=== PATIENT | male | born 1980 | race Caucasian/White ===

== ENCOUNTER 2020-08-07 17:17 | Emergency (ER) | payer BC, OTHER ==
[2020-08-07] MEDS ORDERED: Sodium Chloride 0.9% 10 ML Syringe FLUSH PRN (17:42)
[2020-08-07] MEDS ORDERED: Sodium Chloride 0.9% 2.5 ML Syringe FLUSH PRN (17:42)
[2020-08-07] MEDS ORDERED: Iopamidol 755 MG/ML 500 ML Multipack Bottle IVPUSH ONE (17:52)
--- NOTE | 2020-08-07 18:01 | CT ---
INDICATION: Stroke code. Pt w/lt sided tingling in face, lt sided arm weakness today. CT SCAN HEAD WITHOUT CONTRAST TECHNIQUE: Direct axial non-contrast images of the head from foramen magnum to vertex are provided. FINDINGS: Axial images of the brain demonstrate a normal appearance of the ventricles, sulci and basal cistern. There is no evidence of intracranial hemorrhage, infarct, mass or mass effect. Mera-white differentiation is normal throughout. Visualized mastoid air cells and middle ear cavities are clear. The visualized paranasal sinuses are clear. The orbits are symmetric. Intact calvarium. CONCLUSION: Unremarkable unenhanced head CT. Please note that all CT scans at this facility use dose modulation, iterative reconstruction, and/or weight-based dosing when appropriate to reduce radiation dose to as low as reasonably achievable. Dictated by: Bill Garza MD @ 08/07/2020 17:59:19 (Electronically Signed)
[2020-08-07 18:05] LABS: BLOOD UREA NITROGEN,BUN 14 mg/dL (7.0-18.0); CARBON DIOXIDE,CO2 25.4 mmol/L (21.0-32.0); CHLORIDE,CL 102 mmol/L (98-107); GLUCOSE RANDOM 97 mg/dL (74-106); POTASSIUM,K 3.8 mmol/L (3.5-5.1); SODIUM,NA 139 mmol/L (136-148)
--- NOTE | 2020-08-07 18:15 | CT ---
INDICATION: Acute stroke, left arm weakness. TECHNIQUE: High resolution axial CT images acquired through the head and neck following rapid intravenous administration of iodinated contrast. Multiplanar MIPS of cranial and cervical vasculature performed. FINDINGS: CTA head: There is normal filling of the intracranial vasculature; i.e. there is no large vessel occlusion or intracranial stenosis. There is no cerebral aneurysm or evidence for vascular malformation. The brain parenchyma is at CTA. CTA neck: The internal carotid arteries are somewhat tortuous and redundant. However, there is no carotid or vertebral artery stenosis or dissection. The soft tissues of the neck are within normal limits. The cervical spine is in normal alignment. The lung apices are clear. IMPRESSION: Unremarkable CTA head and neck. Jose Reagan MD Neurointerventional Radiologist [facility] Please note that all CT scans at this facility use dose modulation, iterative reconstruction, and/or weight-based dosing when appropriate to reduce radiation dose to as low as reasonably achievable. Dictated by Jose Reagan MD @ Aug 08 2020 5:44AM Signed by Dr. Jose Reagan @ Aug 08 2020 5:44AM
--- NOTE | 2020-08-07 18:26 | CT ---
INDICATION: Acute stroke, left arm weakness. TECHNIQUE: High resolution axial CT images acquired through the head and neck following rapid intravenous administration of iodinated contrast. Multiplanar MIPS of cranial and cervical vasculature performed. FINDINGS: CTA head: There is normal filling of the intracranial vasculature; i.e. there is no large vessel occlusion or intracranial stenosis. There is no cerebral aneurysm or evidence for vascular malformation. The brain parenchyma is at CTA. CTA neck: The internal carotid arteries are somewhat tortuous and redundant. However, there is no carotid or vertebral artery stenosis or dissection. The soft tissues of the neck are within normal limits. The cervical spine is in normal alignment. The lung apices are clear. IMPRESSION: Unremarkable CTA head and neck. Jose Reagan MD Neurointerventional Radiologist [facility] Please note that all CT scans at this facility use dose modulation, iterative reconstruction, and/or weight-based dosing when appropriate to reduce radiation dose to as low as reasonably achievable. Dictated by Jose Reagan MD @ Aug 08 2020 5:39AM Signed by Dr. Jose Reagan @ Aug 08 2020 5:44AM
--- NOTE | 2020-08-07 18:32 | CR ---
INDICATION: Left arm pain TECHNIQUE: Chest 1 views COMPARISON: 07/07/2009 FINDINGS: Cardiovascular and mediastinum: Heart size and vasculature are normal in caliber and appearance. Lungs and pleural spaces: Lungs are clear. No sign of infiltrate or mass. No sign of pleural effusion. No pneumothorax. Bones and soft tissues: No significant findings. IMPRESSION: No acute findings and no significant changes from the prior exam. Dictated by Jaime Khanna MD @ Aug 07 2020 6:29PM Signed by Dr. Jaime Khanna @ Aug 07 2020 6:30PM
--- NOTE | 2020-08-07 18:38 | EDM.PDOC ---
<Yair Workman - Last Filed: 08/07/20 18:42> ED HPI GENERAL MEDICAL PROBLEM - General Chief Complaint: Neuro Symptoms/Deficits Stated Complaint: NECK DISCOMFORT, LT SIDE OF FACE NUMB, LT ARM PAIN Time Seen by Provider: 08/07/20 17:21 - History of Present Illness INITIAL COMMENTS - FREE TEXT/NARRATIVE: 40-year-old male presents with left arm discomfort in the left lower face tingling. Patient was concerned about the possibility of a stroke because his mother recently had a stroke. He had trouble with high blood pressure in the past but is not currently on any medications. He is a non-smoker. Couple hours prior to arrival patient noted tingling around his left mouth. This was associated with left arm discomfort. He denies chest pain he reports some mild shortness of breath. No nausea vomiting lightheadedness dizziness no other abnormal sensations numbness or weakness. No difficulty walking. Symptoms constant without exacerbating or alleviating factors radiation or other associated symptoms. denies pain Pain Score (Numeric/FACES): 0 - Related Data Allergies Allergy/AdvReac Type Severity Reaction Status Date / Time No Known Allergies Allergy Verified 08/07/20 18:24 Home Meds: Home Meds . [No Known Home Meds] 08/07/20 [History] Past Medical History - Past Health History Medical/Surgical History: Denies Medical/Surgical History Psychiatric History: Reports: Anxiety Hematologic History: Reports: None - Infectious Disease History Infectious Disease History: Reports: None Social & Family History - Family History Family Medical History: No Pertinent Family History - Tobacco Use Tobacco Use Status *Q: Never Tobacco User - Caffeine Use Caffeine Use: Reports: Coffee, Energy Drinks, Soda - Recreational Drug Use Recreational Drug Use: No ED ROS GENERAL - Review of Systems Review Of Systems: See Below Free Text/Narrative/Comment: General: No fever. Skin: No rash. Eyes: No vision problems. ENT: No sore throat. Neck: No neck stiffness. Respiratory: No shortness of breath. Cardiac: No chest pain. Gastrointestinal: No nausea, vomiting or abdominal pain. Urinary: No dysuria. Musculoskeletal: No myalgias/arthralgias. Neurologic: Per HPI ED EXAM, GENERAL - Physical Exam Exam: See Below Free Text/Narrative:: General Appearance: No acute distress, appears comfortable Skin: No rash HEENT: Normocephalic/atraumatic, sclera anicteric, mucous membranes moist Neck: Normal range of motion Chest and Lungs: Bilateral breath sounds, clear to auscultation Cardiovascular: Regular rate and rhythm, no murmur Abdomen: Soft, non-tender Back: Normal Musculoskeletal: No edema or tenderness Neurologic: Awake and alert, cranial nerves III through XI intact bilaterally 5 out of 5 strength in the bilateral upper and lower extremities sensation grossly intact in the upper and lower extremities Romberg negative gait normal, normal speech Psychiatric: Appropriate, cooperative #1 Interpretation EKG Date: 08/07/20 Time: 18:41 EKG Interpretation Comments: Normal sinus rhythm rate of 73 2 PVCs with isolated bigeminy but otherwise normal sinus rhythm no acute ischemia otherwise unremarkable QTC 421 Departure - Departure Disposition: Home, Self-Care 01 Condition: Good Clinical Impression: Paresthesia, Hypertension - Discharge Information *PRESCRIPTION DRUG MONITORING PROGRAM REVIEWED*: Not Applicable *COPY OF PRESCRIPTION DRUG MONITORING REPORT IN PATIENT LUCITA: Not Applicable Instructions: Paresthesia, Hypertension, Adult, [id number] Referrals: Scott Garza MD [Primary Care Provider] - Forms: ED Department Discharge Additional Instructions: The CT scans of your head and neck today were normal they showed no narrowing or blockages of any arteries. Your lab work today was normal with the exception of a mild elevation in your hemoglobin which was 17.8. Important you follow-up with your primary care doctor for follow-up visit and let them know about this value they can repeat it and do additional testing if needed. Your blood pressure was elevated here as well. However, it is common for blood pressure to be elevated in the ER. And for this reason you are not started on any medication. Your primary care doctor will talk to you about starting any blood pressure medication. The following information is given to patients seen in the emergency department who are being discharged to home. This information is to outline your options for follow-up care. We provide all patients seen in our emergency department with a follow-up referral. The need for follow-up, as well as the timing and circumstances, are variable depending upon the specifics of your emergency department visit. If you don't have a primary care physician on staff, we will provide you with a referral. We always advise you to contact your personal physician following an emergency department visit to inform them of the circumstance of the visit and for follow-up with them and/or the need for any referrals to a consulting specialist. The emergency department will also refer you to a specialist when appropriate. This referral assures that you have the opportunity for follow-up care with a specialist. All of these measure are taken in an effort to provide you with optimal care, which includes your follow-up. Under all circumstances we always encourage you to contact your private physician who remains a resource for coordinating your care. When calling for follow-up care, please make the office aware that this follow-up is from your recent emergency room visit. If for any reason you are refused follow-up, please contact the [facility] Emergency Department at and asked to speak to the emergency department charge nurse. Sepsis Event Note (ED) - Evaluation Sepsis Screening Result: No Definite Risk - Assessment/Plan Assessment:: 40-year-old male presenting with left lower facial tingling paresthesias left neck discomfort without vertigo and left arm discomfort. No chest pain. EKG remains pending. Patient was called as a stroke code on arrival. I evaluated the patient immediately his NIH stroke scale score 0 and so he is not a candidate for systemic TPA. Noble score was low. But emergent CT CTA ordered and this is normal. Patient is somewhat hypertensive at this time. He notes that he was unusually hypertensive for him this morning as well 145 was a systolic. Given this fact his age is hypertension left arm discomfort if EKG is normal will plan for second troponin. If he continues to improve and second troponin likewise negative he will be safe for discharge with follow-up. Patient does have abnormally elevated hemoglobin mild dehydration is possible polycythemia vera is possible patient will follow up with his primary care doctor regarding this. EKG without acute ischemia or concerning arrhythmia. 2 PVCs were noted. Repeat troponin would be due at 1930. This result and final disposition signed out to Dr. Grove <Carlyle Grove - Last Filed: 08/07/20 21:02> ED HPI GENERAL MEDICAL PROBLEM - History of Present Illness INITIAL COMMENTS - FREE TEXT/NARRATIVE: 7 PM: Signout received. Patient was seen and evaluated secondary to paresthesias. Patient's ER evaluation was unremarkable. Plan at discharge was to await pending troponin #2. If troponin #2 is negative patient be stable for discharge. Patient's blood pressure at 9 PM is currently 129/91. Patient reports that he is asymptomatic and feels back to baseline. I have discussed the patient all test results including a CT scan results and EKG and blood test. I have explained to him the limitations of her test results and have offered admission to him if he has any concerns. At this time patient feels does not wish to be admitted to the hospital and would prefer to be discharged home with outpatient evaluation. Utilizing shared decision-making, patient will be discharged home with outpatient evaluation for his elevated blood pressure and his paresthesias. I have instructed the patient that he is taking baby aspirin daily. Reassessment at the time of disposition demonstrates that the patient is in no acute distress. The patient has remained stable throughout the entire ED visit and is without objective evidence for acute process requiring urgent intervention or hospitalization. The patient is stable for discharge, counseling is provided as documented above, discussed symptomatic treatment and specific conditions for return. I have spoken with the patient/caregiver and discussed todays findings, in addition to providing specific details for the plan of care. Questions are answered and there is agreement with the plan. Course - Vital Signs Last Recorded V/S: Last Vital Signs Temp 98.3 F 08/07/20 17:19 Pulse 88 08/07/20 19:58 Resp 16 08/07/20 19:58 BP 136/90 08/07/20 19:58 Pulse Ox 96 08/07/20 19:58 - Orders/Labs/Meds Orders: Active Orders 24 hr Category Date Time Status EKG 12 Lead [EKG Documentation Completion] [RC] URGENT Care 08/07/20 18:41 Active Sodium Chloride 0.9% [Saline Flush] Med 08/07/20 17:42 Active 10 ml FLUSH ASDIRECTED PRN Sodium Chloride 0.9% [Saline Flush] Med 08/07/20 17:42 Active 2.5 ml FLUSH ASDIRECTED PRN Saline Lock Insert [OM.PC] Stat Oth 08/07/20 17:42 Ordered Medication Orders Sodium Chloride (Sodium Chloride 0.9% 10 Ml Syringe) 10 ml FLUSH ASDIRECTED PRN PRN Reason: Keep Vein Open Sodium Chloride (Sodium Chloride 0.9% 2.5 Ml Syringe) 2.5 ml FLUSH ASDIRECTED PRN PRN Reason: Keep Vein Open Labs: Laboratory Tests 08/07/20 08/07/20 08/07/20 Range/Units 17:24 17:25 17:25 WBC 7.36 (4.0-11.0) K/uL RBC 5.91 H (4.50-5.90) M/uL Hgb 17.8 H (13.0-17.0) g/dL Hct 50.8 H (38.0-50.0) % MCV 86.0 (80.0-98.0) fL MCH 30.1 (27.0-32.0) pg MCHC 35.0 (31.0-37.0) g/dL RDW Std Deviation 39.4 (28.0-62.0) fl RDW Coeff of Job 13 (11.0-15.0) % Plt Count 191 (150-400) K/uL MPV 12.40 H (7.40-12.00) fL Neut % (Auto) 69.1 (48.0-80.0) % Lymph % (Auto) 21.2 (16.0-40.0) % [place] % (Auto) 8.8 (0.0-15.0) % Eos % (Auto) 0.5 (0.0-7.0) % Baso % (Auto) 0.4 (0.0-1.5) % Neut # (Auto) 5.1 (1.4-5.7) K/uL Lymph # (Auto) 1.6 (0.6-2.4) K/uL [place] # (Auto) 0.7 (0.0-0.8) K/uL Eos # (Auto) 0.0 (0.0-0.7) K/uL Baso # (Auto) 0.0 (0.0-0.1) K/uL Nucleated RBC % 0.0 /100WBC Nucleated RBCs # 0 K/uL Sodium 139 (136-148) mmol/L Potassium 3.8 (3.5-5.1) mmol/L Chloride 102 (98-107) mmol/L Carbon Dioxide 25.4 (21.0-32.0) mmol/L BUN 14 (7.0-18.0) mg/dL Creatinine 1.1 (0.8-1.3) mg/dL Est Cr Clr Drug Dosing TNP Estimated GFR (MDRD) > 60.0 ml/min Glucose 97 (74-106) mg/dL POC Glucose 98 (60-110) mg/dL Calcium 9.1 (8.5-10.1) mg/dL Total Bilirubin 0.4 (0.2-1.0) mg/dL AST 26 (15-37) IU/L ALT 49 (14-63) IU/L Alkaline Phosphatase 84 (46-116) U/L Troponin I < 0.050 (0.000-0.056) ng/mL Total Protein 7.7 (6.4-8.2) g/dL Albumin 4.3 (3.4-5.0) g/dL Globulin 3.4 (2.6-4.0) g/dL Albumin/Globulin Ratio 1.3 (0.9-1.6) 08/07/20 Range/Units 19:51 WBC (4.0-11.0) K/uL RBC (4.50-5.90) M/uL Hgb (13.0-17.0) g/dL Hct (38.0-50.0) % MCV (80.0-98.0) fL MCH (27.0-32.0) pg MCHC (31.0-37.0) g/dL RDW Std Deviation (28.0-62.0) fl RDW Coeff of Job (11.0-15.0) % Plt Count (150-400) K/uL MPV (7.40-12.00) fL Neut % (Auto) (48.0-80.0) % Lymph % (Auto) (16.0-40.0) % [place] % (Auto) (0.0-15.0) % Eos % (Auto) (0.0-7.0) % Baso % (Auto) (0.0-1.5) % Neut # (Auto) (1.4-5.7) K/uL Lymph # (Auto) (0.6-2.4) K/uL [place] # (Auto) (0.0-0.8) K/uL Eos # (Auto) (0.0-0.7) K/uL Baso # (Auto) (0.0-0.1) K/uL Nucleated RBC % /100WBC Nucleated RBCs # K/uL Sodium (136-148) mmol/L Potassium (3.5-5.1) mmol/L Chloride (98-107) mmol/L Carbon Dioxide (21.0-32.0) mmol/L BUN (7.0-18.0) mg/dL Creatinine (0.8-1.3) mg/dL Est Cr Clr Drug Dosing Estimated GFR (MDRD) ml/min Glucose (74-106) mg/dL POC Glucose (60-110) mg/dL Calcium (8.5-10.1) mg/dL Total Bilirubin (0.2-1.0) mg/dL AST (15-37) IU/L ALT (14-63) IU/L Alkaline Phosphatase (46-116) U/L Troponin I < 0.050 (0.000-0.056) ng/mL Total Protein (6.4-8.2) g/dL Albumin (3.4-5.0) g/dL Globulin (2.6-4.0) g/dL Albumin/Globulin Ratio (0.9-1.6) Meds: Medications Generic Name Dose Route Start Last Admin Trade Name Freq PRN Reason Stop Dose Admin Sodium Chloride 10 ml 08/07/20 17:42 Sodium Chloride 0.9% 10 Ml Syringe FLUSH ASDIRECTED PRN Keep Vein Open Sodium Chloride 2.5 ml 08/07/20 17:42 Sodium Chloride 0.9% 2.5 Ml Syringe FLUSH ASDIRECTED PRN Keep Vein Open Discontinued Medications Generic Name Dose Route Start Last Admin Trade Name Freq PRN Reason Stop Dose Admin Iopamidol 100 ml 08/07/20 17:52 08/07/20 17:52 Iopamidol 755 Mg/Ml 500 Ml Multipack Bottle IVPUSH 08/07/20 17:53 100 ml ONETIME ONE Administration Departure - Departure Time of Disposition: 20:56 Sepsis Event Note (ED) - Focused Exam Vital Signs: Vital Signs Temp Pulse Resp BP Pulse Ox 08/07/20 19:58 88 16 136/90 96 08/07/20 19:15 77 14 148/80 H 96 08/07/20 17:19 98.3 F 80 20 165/102 H 98
== END 2020-08-07 21:05 | disposition home or self-care (01) ==
LOC: MW.ED 17:17
DX: I10 Essential (primary) hypertension (principal); R20.2 Paresthesia of skin
CPT/HCPCS: 36415; 70450; 70496; 70498; 71045; 80053; 82962; 84484; 85025; 93005; 99284; Q9967